=== PATIENT | female | born 1935 | race Caucasian/White ===

== ENCOUNTER 2016-06-25 05:55 | Outpatient (CLI) | payer MEDICARE ==
[~2016-06-25] VITALS: Ht 162.6 cm; Wt 66.2 kg
[~2016-06-25 05:55] MED LIST: BUTA1CAP37 PO; CALC-9 PO; CEPH-507 PO; CHOL10003 PO; CIPR500T4 PO; METR250T32 PO; MULT-35 PO; NAPR550T PO; OMEG-160 PO; VITA400C60 PO
--- OUTSIDE RECORDS SUMMARY | 2016-06-25 05:58 | XMS REPORT | Continuity of Care Document ---
Author Author [facility] Organization [facility] Address Unknown Phone Unavailable Care Team Providers Care Strategic Partnership Representative Name Role Phone RAYO POOL MD PCP Insurance Providers Payer Name Policy Number Subscriber Name Relationship Wps Medicare [id number] GavinPaula E 18 Self / Same As Patient Blue Cross [facility] Supp [id number] GavinPaula E 18 Self / Same As Patient Advance Directives Directive Response Recorded Date/Time Advance Directives Yes 04/05/16 1:45am Health Care Power of Plastics Design Engineer Yes 04/05/16 1:45am Organ Donor No 04/05/16 1:45am Resuscitation Status Full Code 04/05/16 1:45am Problems Active Problems Medical Problem Onset Date Status Osteoarthritis of left knee Unknown Acute Medications Current Home Medications Medication Dose Units Route Directions Days/Qty Instructions Start Date Multivitamin 1 Each 1 Tab Oral Daily 03/28/15 [place]-3/Dha/Epa/Fish Oil 1 Each 1,000 Mg Oral Twice A Day 03/28/15 Cholecalciferol (Vitamin D3) 1,000 Unit 1,000 Unit Oral Daily Vitamin E Acetate 400 Unit 400 Unit Oral Daily ONLY TAKES ABOUT 2 TIMES PER WEEK 03/28/15 Butalb/Acetaminophen/Caffeine 1 Each 2 Cap Oral At Onset Of [place] as needed for Headache 03/28/15 Ciprofloxacin Hcl 500 Mg 250 Mg Oral Twice A Day 10 04/08/16 Metronidazole 250 Mg 250 Mg Oral Three Times A Day 10 04/08/16 Past Home Medications Medication Directions Ordered Status Calcium Carbonate/Vitamin D3 1 Each Tablet, 1 Tab Oral Twice A Day 03/28/15 Discontinued Naproxen Sodium (Naproxen) 550 Mg Tablet, 550 Mg Oral Twice A Day 03/29/15 Discontinued Cephalexin 500 Mg Capsule, 500 Mg Oral Twice A Day as needed for Pain Discontinued Social History Social History Problem Response Recorded Date/Time Alcohol Use Denies Use 03/28/2015 10:55am Recreational Drug Use No 03/28/2015 10:55am Recent Foreign Travel No 04/05/2016 1:45am Recent Infectious Disease Exposure No 04/05/2016 1:45am Hospitalization with Isolation Denies 04/16/2016 4:04pm Smoking Status Never a Smoker 04/05/2016 1:45am Do you dip or chew tobacco? No 03/28/2015 10:55am Recent Hopitalizations No 04/05/2016 1:45am Hospitalization with Isolation Denies 04/16/2016 4:04pm Query Response Start Date Stop Date Smoking Status Never a Smoker Hospital Discharge Instructions No hospital discharge instructions. Plan of Care Discharge Date 04/08/16 11:43am Disposition 01 HOME, SELF-CARE Instructions/Education Provided Diverticulitis Prescriptions See Medication Section Referrals RAYO POOL MD (Unspecified) - Address: [address] [place] [address] [place] [address] Reason(s) for Referral: MAKE APPOINTMENT TO SEE DR POOL IN 2 WEEKS Additional Instructions/Education REGULAR DIET ACTIVITY TOLERATES FOLLOW UP WITH DR POOL IN 2 WEEKS Care Plan and Goals Functional Status Query Response Date Recorded Patient Orientation Person Place Time Situation Eyes Open April 16, 2016 4:04pm Comprehension Ability Understands Concepts April 08, 2016 9:00am Allergies, Adverse Reactions, Alerts No known allergies. Immunizations No immunization records. Vital Signs Acute Vital Signs Vital Response Date/Time Temperature (Fahrenheit) 97.1 degrees F (97.6 - 99.5) 04/08/2016 2:30pm Temperature (Calculated Celsius) 36.53586 degrees C (36.4 - 37.5) 04/08/2016 8:00am Temperature Source Temporal 04/08/2016 2:30pm Pulse Rate (adult) 80 bpm (60 - 90) 04/08/2016 2:30pm Respiratory Rate 20 bpm (12 - 24) 04/08/2016 2:30pm O2 Sat by Pulse Oximetry 96 % (88 - 100) 04/08/2016 2:30pm Blood Pressure 117/70 mm Hg 04/08/2016 2:30pm Blood Pressure Mean 86 mm Hg 04/08/2016 8:00am Pain Numeric Pain Scale 0-No Pain 04/08/2016 2:30pm Height (Feet) 5 feet 04/05/2016 1:45am Height (Inches) 4.00 inches 04/05/2016 1:45am Height (Calculated Centimeters) 162.410857 cm 04/05/2016 1:45am Weight (Pounds) 146 pounds 04/05/2016 1:45am Weight (Ounces) 0.0 oz 04/05/2016 1:45am Weight (Calculated Grams) 17964.49 gm 04/05/2016 1:45am Weight (Calculated Kilograms) 66.895491 kilograms 04/05/2016 1:45am Calculated BMI 25.1 04/05/2016 1:45am Capillary Refill Capillary Refill Less Than 3 Seconds 04/04/2016 11:29pm Results Laboratory Results Test Name Result Units Flags Reference Collection Date/Time Result Date/ Time Comments White Blood Count 10.9 10^3/uL 4.3-11.0 04/07/2016 10:30am 04/07/2016 10:44am Red Blood Count 4.71 10^6/uL 4.35-5.85 04/07/2016 10:30am 04/07/2016 10 :44am Hemoglobin 14.3 G/DL 11.5-16.0 04/07/2016 10:30am 04/07/2016 10:44am Hematocrit 42 % 35-52 04/07/2016 10:30am 04/07/2016 10:44am Mean Corpuscular Volume 89 FL 80-99 04/07/2016 10:30am 04/07/2016 10: 44am Mean Corpuscular Hemoglobin 30 PG 25-34 04/07/2016 10:30am 04/07/2016 10:44am Mean Corpuscular Hemoglobin Concent 34 G/DL 32-36 04/07/2016 10:30am 10:44am Red Cell Distribution Width 13.3 % 10.0-14.5 04/07/2016 10:30am 2015 10:44am Platelet Count 230 10^3/uL 130-400 04/07/2016 10:30am 04/07/2016 10: 44am Mean Platelet Volume 10.7 FL H 7.4-10.4 04/07/2016 10:30am 04/07/2016 10: 44am Neutrophils (%) (Auto) 59 % 42-75 04/07/2016 10:30am 04/07/2016 10: 44am Lymphocytes (%) (Auto) 27 % 12-44 04/07/2016 10:30am 04/07/2016 10: 44am Monocytes (%) (Auto) 13 % H 0-12 04/07/2016 10:30am 04/07/2016 10:44am Eosinophils (%) (Auto) 1 % 0-10 04/07/2016 10:30am 04/07/2016 10:44am Basophils (%) (Auto) 0 % 0-10 04/07/2016 10:30am 04/07/2016 10:44am Neutrophils # (Auto) 6.4 X 10^3 1.8-7.8 04/07/2016 10:30am 04/07/2016 10:44am Lymphocytes # (Auto) 2.9 X 10^3 1.0-4.0 04/07/2016 10:30am 04/07/2016 10:44am Monocytes # (Auto) 1.4 X 10^3 H 0.0-1.0 04/07/2016 10:30am 04/07/2016 10: 44am Eosinophils # (Auto) 0.1 10^3/uL 0.0-0.3 04/07/2016 10:30am 04/07/2016 10:44am Basophils # (Auto) 0.0 10^3/uL 0.0-0.1 04/07/2016 10:30am 04/07/2016 10 :44am Smear Scan YES 04/04/2016 11:45pm 04/05/2016 12:56am VERIFIED BY SCAN OF SMEAR. Urine Color YELLOW 04/04/2016 11:39pm 04/04/2016 11:56pm Urine Clarity CLEAR 04/04/2016 11:39pm 04/04/2016 11:56pm Urine pH 6 5-9 04/04/2016 11:39pm 04/04/2016 11:56pm Urine Specific [place] 1.025 * 1.016-1.022 04/04/2016 11:39pm 2015 11:56pm Urine Protein 1+ * NEGATIVE 04/04/2016 11:39pm 04/04/2016 11:56pm Urine Glucose (UA) NEGATIVE NEGATIVE 04/04/2016 11:39pm 04/04/2016 11 :56pm Urine RBC (Auto) 4+ * NEGATIVE 04/04/2016 11:39pm 04/04/2016 11:56pm Urine Ketones NEGATIVE NEGATIVE 04/04/2016 11:39pm 04/04/2016 11: 56pm Urine Nitrite NEGATIVE NEGATIVE 04/04/2016 11:39pm 04/04/2016 11: 56pm Urine Bilirubin NEGATIVE NEGATIVE 04/04/2016 11:39pm 04/04/2016 11: 56pm Urine Urobilinogen 1 MG/DL NORMAL 04/04/2016 11:39pm 04/04/2016 11: 56pm Urine Leukocyte Esterase 1+ * NEGATIVE 04/04/2016 11:39pm 04/04/2016 11 :56pm Urine RBC 5-10 /HPF * 04/04/2016 11:39pm 04/04/2016 11:56pm Urine WBC 0-2 /HPF 04/04/2016 11:39pm 04/04/2016 11:56pm Urine Bacteria TRACE /HPF 04/04/2016 11:39pm 04/04/2016 11:56pm Urine Squamous Epithelial Cells 0-2 /HPF 04/04/2016 11:39pm 2015 11:56pm Urine Crystals NONE /LPF 04/04/2016 11:39pm 04/04/2016 11:56pm Urine Casts NONE /LPF 04/04/2016 11:39pm 04/04/2016 11:56pm Urine Mucus SMALL /LPF * 04/04/2016 11:39pm 04/04/2016 11:56pm Urine Culture Indicated NO 04/04/2016 11:39pm 04/04/2016 11:56pm Sodium Level 135 MMOL/L 135-145 04/07/2016 10:30am 04/07/2016 10:59am Potassium Level 4.0 MMOL/L 3.6-5.0 04/07/2016 10:30am 04/07/2016 10: 59am Chloride Level 104 MMOL/L 98-107 04/07/2016 10:30am 04/07/2016 10:59am Carbon Dioxide Level 21 MMOL/L 21-32 04/07/2016 10:30am 04/07/2016 10: 59am Anion Gap 10 MMOL/L 5-14 04/07/2016 10:30am 04/07/2016 10:59am Blood Urea Nitrogen 19 MG/DL H 7-18 04/07/2016 10:30am 04/07/2016 10: 59am Creatinine 0.72 MG/DL 0.60-1.30 04/07/2016 10:30am 04/07/2016 10:59am BUN/Creatinine Ratio 26 04/07/2016 10:30am 04/07/2016 10:59am Estimat Glomerular Filtration Rate > 60 04/07/2016 10:30am 2015 10:59am GFR INTERPRETIVE DATA UNITS FOR ESTIMATED GFR (eGFR): mL/min/1.73 M2 REFERENCE RANGE FOR ESTIMATED GFR (eGFR) eGFR NORMAL eGFR >60 MODERATELY DECREASED eGFR 30-59 SEVERLY DECREASED eGFR 15-29 KIDNEY FAILURE <15 (OR DIALYSIS) Glucose Level 116 MG/DL H 70-105 04/07/2016 10:30am 04/07/2016 10:59am Calcium Level 8.7 MG/DL 8.5-10.1 04/07/2016 10:30am 04/07/2016 10:59am Total Bilirubin 0.6 MG/DL 0.1-1.0 04/07/2016 10:30am 04/07/2016 10: 59am Alkaline Phosphatase 54 U/L 40-136 04/07/2016 10:30am 04/07/2016 10: 59am Aspartate Amino Transf (AST/SGOT) 24 U/L 5-34 04/07/2016 10:30am 2015 10:59am Alanine Aminotransferase (ALT/SGPT) 14 U/L 0-55 04/07/2016 10:30am 10:59am Total Protein 6.8 G/DL 6.4-8.2 04/07/2016 10:30am 04/07/2016 10:59am Albumin 3.6 G/DL 3.2-4.5 04/07/2016 10:30am 04/07/2016 10:59am Lipase 17 U/L 8-78 04/04/2016 11:45pm 04/05/2016 12:27am Procedures No known history of procedures. Encounters Encounter Location Arrival/Admit Date Discharge/Depart Date Attending Provider Discharged Inpatient (obs) [facility] 04/04/16 11:21pm 04/08/16 11:43am KHUSHBU HERZOG DO
== END 2016-06-25 12:18 ==
LOC: PREOP 05:55
PROVIDERS: ATTEND Surgery Pediatric Surgery
DX: Z01.818 Encounter for other preprocedural examination (principal); Z12.11 Encounter for screening for malignant neoplasm of colon; Z87.19 Personal history of other diseases of the digestive system

== ENCOUNTER 2016-06-27 09:27 | Day surgery (SDC) | payer MEDICARE ==
[~2016-06-27] VITALS: Ht 162.6 cm; Wt 66.2 kg
--- OUTSIDE RECORDS SUMMARY | 2016-06-27 09:31 | XMS REPORT | Continuity of Care Document ---
Author Author [facility] Organization [facility] Address Unknown Phone Unavailable Care Team Providers Care Corporate Compliance Manager Name Role Phone RAYO POOL MD PCP Insurance Providers Payer Name Policy Number Subscriber Name Relationship Wps Medicare [id number] GavinPaula E 18 Self / Same As Patient Blue Cross [facility] Supp [id number] GavinPaula E 18 Self / Same As Patient Advance Directives Directive Response Recorded Date/Time Advance Directives Yes 04/05/16 1:45am Health Care Power of Solar Sales Representative And Assessor Yes 04/05/16 1:45am Organ Donor No 04/05/16 1:45am Resuscitation Status Full Code 04/05/16 1:45am Problems Active Problems Medical Problem Onset Date Status Osteoarthritis of left knee Unknown Acute Medications Current Home Medications Medication Dose Units Route Directions Days/Qty Instructions Start Date Multivitamin 1 Each 1 Tab Oral Daily 03/28/15 [place]-3/Dha/Epa/Fish Oil 1 Each 1,000 Mg Oral Twice [...] Referrals RAYO POOL MD (Unspecified) - Address: [address] [place] [address] [place] [address] Reason(s) for Referral: MAKE APPOINTMENT [...] - 99.5) 04/08/2016 2:30pm Temperature (Calculated Celsius) 36.05069 degrees C (36.4 - 37.5) 04/08/2016 8:00am [...] 4.00 inches 04/05/2016 1:45am Height (Calculated Centimeters) 162.070579 cm 04/05/2016 1:45am Weight (Pounds) 146 pounds 04/05/2016 1:45am Weight (Ounces) 0.0 oz 04/05/2016 1:45am Weight (Calculated Grams) 02354.49 gm 04/05/2016 1:45am Weight (Calculated Kilograms) 66.471372 kilograms 04/05/2016 1:45am Calculated BMI 25.1 04/05/2016 [...] 5-9 04/04/2016 11:39pm 04/04/2016 11:56pm Urine Specific [place] 1.025 * 1.016-1.022 04/04/2016 11:39pm 2015 11:56pm [...] Date Attending Provider Discharged Inpatient (obs) [facility] 04/04/16 11:21pm 04/08/16 11:43am KHUSHBU HERZOG DO
--- OUTSIDE RECORDS SUMMARY | 2016-06-27 09:31 | XMS REPORT | Continuity of Care Document ---
Author Author [facility] Organization [facility] Address Unknown Phone Unavailable Care Team Providers Care Plant Cytologist Name Role Phone RAYO POOL MD PCP Insurance Providers Payer Name Policy Number Subscriber Name Relationship Wps Medicare [id number] GavinPaula E 18 Self / Same As Patient Blue Cross [facility] Supp [id number] GavinPaula E 18 Self / Same As Patient Advance Directives Directive Response Recorded Date/Time Advance Directives Yes 04/05/16 1:45am Health Care Power of Highway Maintainer Yes 04/05/16 1:45am Organ Donor No 04/05/16 1:45am Resuscitation Status Full Code 04/05/16 1:45am Problems Active Problems Medical Problem Onset Date Status Osteoarthritis of left knee Unknown Acute Medications Current Home Medications Medication Dose Units Route Directions Days/Qty Instructions Start Date Multivitamin 1 Each 1 Tab Oral Daily 03/28/15 [place]-3/Dha/Epa/Fish Oil 1 Each 1,000 Mg Oral Twice [...] Referrals RAYO POOL MD (Unspecified) - Address: [address] [place] [address] [place] [address] Reason(s) for Referral: MAKE APPOINTMENT [...] - 99.5) 04/08/2016 2:30pm Temperature (Calculated Celsius) 36.42096 degrees C (36.4 - 37.5) 04/08/2016 8:00am [...] 4.00 inches 04/05/2016 1:45am Height (Calculated Centimeters) 162.626688 cm 04/05/2016 1:45am Weight (Pounds) 146 pounds 04/05/2016 1:45am Weight (Ounces) 0.0 oz 04/05/2016 1:45am Weight (Calculated Grams) 60944.49 gm 04/05/2016 1:45am Weight (Calculated Kilograms) 66.002241 kilograms 04/05/2016 1:45am Calculated BMI 25.1 04/05/2016 [...] 5-9 04/04/2016 11:39pm 04/04/2016 11:56pm Urine Specific [place] 1.025 * 1.016-1.022 04/04/2016 11:39pm 2015 11:56pm [...] Date Attending Provider Discharged Inpatient (obs) [facility] 04/04/16 11:21pm 04/08/16 11:43am KHUSHBU HERZOG DO
[2016-06-27] MEDS ORDERED: NS IV 500 ML 500 ML IV PRN (09:40)
[2016-06-27] MEDS ORDERED: NALOXONE 0.4 MG/ML 1 ML (NARCAN) VIAL IVP PRN (09:45)
[2016-06-27] MEDS ORDERED: FLUMAZENIL (ROMAZICON) 0.1 MG/ML 5 ML VIAL INJ PRN (09:45)
[2016-06-27] MEDS ORDERED: LIDOCAINE JELLY 2% (XYLOCAINE) 5 ML TUBE MM PRN (09:45)
[2016-06-27 09:58] VITALS: BP 137/64
--- NOTE | 2016-06-27 10:15 | Conscious Sedation/ASA ---
Conscious Sedation Pre-Proced Time Reviewed: 10:00 ASA Class: 2 Airway Mallampati Classification: ([place] appropriate class) I. II. III, IV Lungs Heart ASA score ASA 1: a normal healthy patient ASA 2: a patient with a mild systemic disease (mid diabetes, controlled hypertension, obesity ASA 3: a patient with a severe systemic disease that limits activity (angina , COPD, prior Myocardial infarction) ASA 4: a patient with an incapacitating disease that is a constant threat to life (CHF, renal failure) ASA 5: a moribund patient not expected to survive 24 hrs. (ruptured aneurysm) ASA 6: a declared brain patient whose organs are being harvested. For emergent operations, add the letter E after the classification Grade 2 Sedation Plan: Analgesia, Amnesia, Plan communicated to team members, Discussed options with patient/fam, Discussed risks with patient/fam Note The patient is an appropriate candidate to undergo the planned procedure, sedation, and anesthesia. The patient immediately re-assessed prior to indication. ASAEL CAPELLAN MD Jun 27, 2016 10:15 am
--- NOTE | 2016-06-27 10:17 | Progress Note-Pre Operative ---
Pre-Operative Progress Note H&P Reviewed The H&P was reviewed, patient examined and no changes noted. Date H&P Reviewed: Jun 27, 2016 Time H&P Reviewed: 10:00 Pre-Operative Diagnosis: screening colonoscopy ASAEL CAPELLAN MD Jun 27, 2016 10:16 am
[2016-06-27] MEDS ORDERED: HYDROcodone/APAP 5 MG/325 MG (LORTAB) TAB PO PRN (10:30)
[2016-06-27] MEDS ORDERED: ONDANSETRON 4 MG/2 ML (SDV) Z0FRAN IV PRN (10:30)
[2016-06-27] MEDS ORDERED: morphine INJ 10 MG/ML 1ML (SYR OR VIAL) IV PRN (10:30)
[2016-06-27] MEDS ORDERED: ACETAMINOPHEN 325 MG TABLET/CAPLET (TYLENOL) PO PRN (10:30)
[2016-06-27] MEDS ORDERED: fentaNYL INJECTION 100 MCG/2 ML AMP ONE ×2 (10:37)
[2016-06-27] MEDS ORDERED: LIDOCAINE JELLY 2% (XYLOCAINE) 5 ML TUBE ONE (10:37)
[2016-06-27] MEDS ORDERED: MIDAZOLAM 2 MG/2 ML (VERSED) VIAL ONE ×4 (10:37→10:38)
[2016-06-27] MEDS: fentaNYL INJECTION 100 MCG/2 ML AMP IVP PRN ×2 (11:13→11:33)
[2016-06-27] MEDS: MIDAZOLAM 2 MG/2 ML (VERSED) VIAL IVP PRN ×3 (11:14→11:41)
--- NOTE | 2016-06-27 12:09 | Progress Note-Post Operative ---
Post-Operative Progess Note Pre-Operative Diagnosis screening colonoscopy Post-Operative Diagnosis chronic stage 2 ext and int hemorroids, moderate distal proctitis, mild sigmid diverticulosis. Post-Op Procedure Note Date of Procedure: Jun 27, 2016 Name of Procedure: Colonoscopy with bx Anesthesia Type CS Estimated blood loss (mL): minimal Specimen(s) collected rectum ASAEL CAPELLAN MD Jun 27, 2016 12:09 pm
--- NOTE | 2016-06-27 12:10 | Discharge Inst-Surgical ---
D/C Lap Instructions-TIMI Follow Up Appt in 2 weeks Activity as tolerated High Fiber Diet 25g or more per day Avoid Alcohol, Caffeine, Spicy [place] and Acid foods. Drink 64 fluid oz or more of fluids per day. Symptoms to Report: Fever over 101 degree F, Nausea/Vomiting If any problems/questions: Contact your physician or go to Emergency Room ASAEL CAPELLAN MD Jun 27, 2016 12:10 pm
[2016-06-27 12:15] VITALS: BP 115/64
[2016-06-27 12:50] VITALS: BP 105/53
[2016-06-27 12:59] VITALS: BP 105/53
--- NOTE | 2016-06-28 09:19 | OPERATIVE REPORT ---
PROCEDURE PHYSICIAN: ASAEL CAPELLAN DATE OF PROCEDURE: 06/27/2016 ATTENDING PRIMARY CARE PHYSICIAN: Dr. Karimi. PREOPERATIVE DIAGNOSIS: History of left lower quadrant abdominal pain and suspected sigmoid diverticulitis. POSTOPERATIVE DIAGNOSES: 1. Chronic, stage II external and internal hemorrhoids. 2. Moderate proctitis. 3. Mild sigmoid diverticulosis. PROCEDURE: Colonoscopy with biopsy. SURGEON: Dr. Capellan. ANESTHESIA: Conscious sedation. ESTIMATED BLOOD LOSS: Minimal. FINDINGS: 1. Chronic, stage II external and internal hemorrhoids, not actively edematous or inflamed and no bleeding. 2. There was a moderate proctitis of the distal rectum with no bleeding. 3. There was a mild sigmoid diverticulosis; however, no active inflammation. 4. The remainder of the colon was normal. DISPOSITION: The patient tolerated the procedure well. Ms. Paula Bernard is an 80-year-old female who was seen at [facility] for left lower quadrant abdominal pain, as well as CT scan findings consistent with a diverticulitis. She was treated conservatively with bowel rest and IV fluids, as well as antibiotics and did well. She states that she is in relatively good health and does try to eat healthy with lean meat, protein sources as well as much fruits and vegetables as possible. She did have a colonoscopy in 2008 which was normal. PROCEDURE: The patient was brought to the endoscopy suite, laid in the left lateral decubitus position. After adequate IV pain and sedative medications and conscious sedation anesthesia, a digital rectal examination was performed. Chronic, stage II external and internal hemorrhoids were identified which were not actively edematous or inflamed and no bleeding. Normal sphincter tone was felt and there were no palpable masses. The endoscope was then intubated into the anus and the rectum gently insufflated. At the distal rectum there were no mucosal inflammatory changes to indicate a moderate proctitis. Several biopsies were taken with forceps with visualization of good hemostasis. The endoscope was then advanced through the remainder of the rectum, which appeared normal. Through the sigmoid colon a mild sigmoid diverticulosis identified. There were no mucosal inflammatory changes to indicate any active diverticulitis. The endoscope was then advanced through the remainder of the descending, transverse, and ascending colon of the cecum. These segments were normal. There were no polyps or any neoplasms identified. The endoscope was then slowly withdrawn while taking a second look and suctioning of residual air with no additional findings. The patient tolerated the procedure well. We will await the biopsy results. In the meantime, we will have her continue medical management with a high fiber diet with at least 25 grams of fiber per day to promote soft stools on a daily basis. Job ID: [id number] Dictated Date: 06/27/2016 12:08:15 Towel Folder Date: 06/27/2016 15:21:19 / alie
== END 2016-06-27 13:03 | disposition home or self-care (01) ==
LOC: ENDO 09:27
PROVIDERS: ATTEND Surgery Pediatric Surgery
DX: K62.89 Other specified diseases of anus and rectum (principal); K57.90 Diverticulosis of intestine, part unspecified, without perforation or abscess without bleeding; K64.1 Second degree hemorrhoids
CPT/HCPCS: 88305

== ENCOUNTER 2021-10-07 19:28 | Emergency (ER) | payer MEDICARE ==
[~2021-10-07 19:28] MED LIST changes: -CIPR500T4 PO; +CIPR500T5 PO; +METR-143 PO; -METR250T32 PO; +NAPR-1070 PO; -NAPR550T PO
--- NOTE | 2021-10-07 20:38 | ED Head Injury ---
General Chief Complaint: Trauma-Non Activation Stated Complaint: FELL AND HIT HEAD,HEAD LAC,BLEEDING Nursing Triage Note: PT ARRIVAL TO ER WITH COMPLAINT OF SMALL WOUND TO LEFT FOREHEAD AFTER FALL AT NOON. PT STATES THAT SHE WAS SITTING ON A CUTT OFF STUMP AT THE GROUND AFTER DOING YARD WORK, AND WHEN SHE WENT TO PUSH OFF THE EDGE OF THE STUMP THE DRY ROTTED STUMP BROKE ALLOWING HER TO TOPPLE OVER TO HER LEFT. PT HAS SMALL LACERATION THAT IS MOSTLY SCABBED OVER, BUT PATIENT STATES THAT SHE KEEPS WIPING IT WITH PAPER TOWEL AND WAS WORRIED THAT IT WOULDNT STOP BLEEDING. PT DENIES PAIN AND DENIES BEING ON BLOOD THINNERS. PT IS AGGRESSIVING WHEN WIPING IT. NO OTHER SIGNS OF TRAUMA. PT HAD TO WATCH A MOVIE AND A [employer] GAME BEFORE COMING IN. Source: patient Exam Limitations: no limitations History of Present Illness Date Seen by Provider: Oct 07, 2021 Time Seen by Provider: 20:34 Initial Comments This is an 86-year-old female that presents to the emergency room for evaluation of a left head injury. She states that around noon today she was sitting on a and when she went to get up the stump broke and she fell forward, striking her forehead on the ground. She sustained a small laceration But it would be okay so she waited until now to come in. She did not lose consciousness and denies any other symptoms. Her tetanus is not up-to-date. Occurred: this morning Severity: mild Location: frontal Method of Injury: fell Loss of Consciousness: no loss of consciousness Allergies and Home Medications Allergies Coded Allergies: No Known Drug Allergies (Unverified , 03/28/15) Patient Home Medication List Home Medication List Reviewed: Yes Butalb/Acetaminophen/Caffeine (Xxmdcoao-Jhubtrgszdgol-Sjlg Cp) 1 Each Capsule, 2 CAP PO AT ONSET OF WOODS PRN for HEADACHE, (Reported) Entered as Reported by: JULIET CARSON on 03/28/151415 Cholecalciferol (Vitamin D3) (Vitamin D3) 1,000 Unit Tablet, 1,000 UNIT PO DAILY, (Reported) Entered as Reported by: JULIET CARSON on 03/28/151415 Multivitamin (Daily Multiple Vitamin) 1 Each Tablet, 1 TAB PO DAILY, (Reported) Entered as Reported by: JULIET CARSON on 03/28/151415 Scarbro-3/Dha/Epa/Fish Oil (Fish Oil 1,000 mg Softgel) 1 Each Capsule, 1,000 MG PO BID, (Reported) Entered as Reported by: JULIET ACRSON on 03/28/15 141 Vitamin E Acetate (Vitamin E) 400 Unit Capsule, 400 UNIT PO DAILY, (Reported) Entered as Reported by: JULIET CARSON on 03/28/15 141 Review of Systems Review of Systems Constitutional: no symptoms reported Eyes: No Symptoms Reported Ears, Nose, Mouth, Throat: no symptoms reported Respiratory: no symptoms reported Cardiovascular: no symptoms reported Genitourinary: no symptoms reported Musculoskeletal: no symptoms reported Skin: other (Laceration left forehead) Psychiatric/Neurological: No Symptoms Reported Endocrine: No Symptoms Reported Past Pckklsx-Dtupxt-Skoxox Hx Patient Social History Tobacco Use?: No Use of E-Cig and/or Vaping dev: No Substance use?: No Alcohol Use?: No Pt feels they are or have been: No Immunizations Up To Date Tetanus Booster (TDap): Less than 5yrs PED Vaccines UTD: No Influenza Vaccine Up-to-Date: Yes; Up-to-Date COVID19 Vaccine College [employer]: Tubis Seasonal Allergies Seasonal Allergies: No Past Medical History Headaches /Migraines Reproductive Disorders: No Diverticulosis Osteoporosis, Arthritis Cataract Loss of Vision: Denies Hearing Impairment: Denies Melanoma Eczema Adverse Reaction/Blood Tranf: No Family Medical History Arthritis G8 BROTHER Diabetes mellitus G8 BROTHER FH: ovarian cancer in first degree relative 19 MOTHER Myocardial infarction G8 BROTHER Visual disorder G8 BROTHER Physical Exam Vital Signs Vital Signs - First Documented 10/07/21 20:23 Pulse 86 Resp 18 B/P (MAP) 175/79 (111) Pulse Ox 99 O2 Delivery Room Air Capillary Refill : Less Than 3 Seconds Height, Weight, BMI Height: 5'4.00" Weight: 146lbs. 0.0oz. [id number]; 25.1 BMI Method:Stated General Appearance: WD/WN, no apparent distress HEENT: other (Small superficial laceration to the left lateral forehead which is essentially scabbed over. No dirt or foreign body noted. No tenderness. No active bleeding at this time.) Neck: non-tender, full range of motion, supple Cardiovascular: regular rate, rhythm Respiratory: chest non-tender Extremities: normal range of motion, non-tender Psychiatric: alert, oriented x 3 Skin: normal color Liat Coma Score Best Eye Response: (4) Open Spontaneously Best Verbal Response: (5) Oriented Best Motor Response: (6) Obeys Commands Progress/Results/Core Measures Results/Orders My Orders Orders - KAELA ALEXANDER Dipht,Pertuss(Acell),Tet Adult (Boostrix (10/07/21 20:45) Vital Signs/I&O 10/07/21 20:23 Pulse 86 Resp 18 B/P (MAP) 175/79 (111) Pulse Ox 99 O2 Delivery Room Air Blood Pressure Mean: 111 Departure Communication (Admissions) Patient has a small scalp laceration to left lateral forehead. Unfortunately has been too long to repair this without high risk of infection. I did clean in the emergency room and then bandaged it. No evidence for suspicion of foreign body, fracture, intracranial hemorrhage or other emergent condition. Patient has no other symptoms whatsoever. Impression Primary Impression: Forehead laceration Disposition: 01 HOME, SELF-CARE Condition: Stable Departure-Patient Inst. Decision time for Depature: 20:37 Referrals: ROCÍO SUÁREZ MD (PCP/Family) Primary Care Physician Patient Instructions: Wound Care, Minor Head Injury (DC) Add. Discharge Instructions: Please follow-up with your primary care as needed. Return to the emergency room with any severe changes or worsening of your symptoms All discharge instructions reviewed with patient and/or family. Voiced understanding. KAELA ALEXANDER Oct 07, 2021 20:38
[2021-10-07] MEDS ORDERED: TETANUS,DIPTH,PERTUSS P/F (BOOSTRIX) 0.5 ML VIAL IM ONE (20:45)
[2021-10-07 20:47] VITALS: BP 159/73
== END 2021-10-07 20:47 | disposition home or self-care (01) ==
LOC: EDUNIT# 19:28 → ER 19:31
DX: S01.01XA Laceration without foreign body of scalp, initial encounter (principal); Z23 Encounter for immunization; W18.30XA Fall on same level, unspecified, initial encounter; Y92.007 Garden or yard of unspecified non-institutional (private) residence as the place of occurrence of the external cause; Y93.H2 Activity, gardening and landscaping
CPT/HCPCS: 90715; 99284

== ENCOUNTER → 2022-08-22 | Outpatient (CLI) | payer MEDICARE ==
--- NOTE | 2022-08-22 19:27 | Diagnostic Imaging Report ---
INDICATION: Left hip pain. COMPARISON: CT dated 04/05/2016. TECHNIQUE: Two radiographs of the left hip dated 08/22/2022. FINDINGS: Round radiopaque densities are seen overlying the lateral aspect of the left hip. These are related to cough drops per the technologist and were removed prior to the frog-leg view. Mild degenerative changes within the left sacroiliac joint. No acute fracture or dislocation. No destructive osseous process. Severe joint space narrowing of the left hip is noted, particularly superomedially. This is associated with sclerosis of the articular surfaces and moderate osteophyte formation. No collapse of the left femoral head. The pubic symphysis is intact. 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 Dictated by: Dictated on workstation # [id number]
== END ==
LOC: RAD 12:01
PROVIDERS: ATTEND Family Medicine
DX: M25.552 Pain in left hip (principal)
CPT/HCPCS: 73502